=== PATIENT | female | born 1960 | race Asian ===

== ENCOUNTER 2016-08-30 14:37 | Emergency (ER) | payer OTHER ==
[2016-08-30] MEDS ORDERED: predniSONE 20 MG TAB As Ordered ONE (15:49)
[2016-08-30] MEDS ORDERED: IPRATROPIUM 0.5MG/ALBUTEROL 2.5MG INH SOL UD 3ML (DUONEB)(J7620) As Ordered ONE (15:50)
--- NOTE | 2016-08-30 16:07 | REP ---
Clinical: Cough. Technique: PA and lateral. Comparison: 11/22/2013. Findings: Bibasilar air space disease compatible with acute multifocal pneumonia (left greater than right). Mediastinum and cardiac silhouette normal. No pneumothorax. Skeletal structures stable. Impression: Bibasilar infiltrates compatible with acute pneumonia (left greater than right). Signed by Spencer Ward MD 08/30/2016 03:59 P
--- NOTE | 2016-08-30 16:36 | EDDOCDS ---
Nurse's Notes [facility] Name: Mikayla Garcia Age: 56 yrs Sex: Female : 1960 Arrival Date: 08/30/2016 Time: 14:37 Bed PD Private MD: Chago Bianchi Diagnosis: Pneumonia, unspecified organism Presentation: 08/30 14:47 Presenting complaint: Friend states: fever and left sided neck swelling x1 week. Adult ttb Sepsis Screening: The patient does not have new or worsening altered mentation. Patient's respiratory rate is less than 22. Systolic blood pressure is greater than 100. Patient has a qSOFA score of 0- Negative Sepsis Screen. Suicide/Homicide risk assessment- the patient denies having any suicidal and/or homicidal ideations and does not present with any other emotional, behavioral or mental health complaints. 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 Transition of care: patient was not received from another setting of care. 14:47 Acuity: BHAVESH Level 3 ttb 14:47 Method Of Arrival: Walkin/Carried/Asstd ttb Triage Assessment: 14:55 General: Appears in no apparent distress, well nourished, well groomed, Behavior is ttb appropriate for age, cooperative, pleasant. Pain: Location: left neck. Pt Declines HIV testing. Neurological: Level of Consciousness is awake, alert. EENT:. Cardiovascular: Chest pain is denied. Respiratory: Airway is patent Respiratory effort is even, unlabored, Respiratory pattern is regular, symmetrical, Reports shortness of breath cough that is pain with cough. Derm: Skin is normal. Injury Description: No known injury. Historical: - Allergies: Amoxicillin; Ampicillin; - Home Meds: 1. Theraflu Flu-Sore Throat 20-10-650 mg oral pwpk as needed 2. Ospamox (vietamese Amoxicillin) 500 mg three times a day x3 days (Last dose: 08/30/2016 08:00) - PMHx: none; - PSHx: Appendectomy; - Social history: Smoking status: Patient states was never smoker of tobacco. Preferred Language: Cameroonian. - Family history: Not pertinent. - : The pt / caregiver states he / she is not on anticoagulants. Home medication list is obtained from friend and medication bottle. - Exposure Risk Screening:: None identified. Screenin:33 Screening information is obtained from unable Cameroonian first languagel. jjr 16:35 Fall risk: No risks identified. jjr Assessment: 16:22 General: Appears in no apparent distress, slender, well nourished, well groomed, jjr Behavior is appropriate for age. Respiratory: Airway is patent Respiratory effort is even, unlabored, Respiratory pattern is regular. Derm: No deficits noted. Vital Signs: 14:38 BP 139 / 83; Pulse 112; Resp 18; Temp 100.8(O); Pulse Ox 96% on R/A; Weight 49.9 kg; lr2 Height 5 ft. 6 in. (167.64 cm); Pain 10/10; 16:22 BP 142 / 80; Pulse 113; Resp 18; Temp 100.2(O); Pulse Ox 93% on R/A; jjr 14:38 Body Mass Index 17.75 (49.90 kg, 167.64 cm) lr2 Vitals: 14:38 Log In Time: August 30, 2016 at 14:37. lr2 ED Course: 14:38 Patient visited by Effie Roland. lr2 14:38 Patient moved to Waiting lr2 14:39 Chago Bianchi MD is Private Physician. lr2 14:39 Patient moved to Pre RCE lr2 14:49 Triage Initiated ttb 14:57 Patient visited by Lisa Wagner, SUSAN. ttb 14:58 Patient moved to Triage 1 ms18 15:36 [facility]C [facility]. cc10 15:36 oClt Welsh MD is Attending Physician. cc10 15:40 Patient visited by Isidro Hernandez PA-C. cc10 15:40 Patient visited by Isidro Hernandez PA-C. cc10 15:45 Patient moved to PD2 / 27 ms18 15:55 Patient visited by Layla Robison,SUSAN. ms18 16:23 Patient visited by Beatriz Hancock RN. jjr 16:23 The patient / caregiver is instructed regarding the plan of care and ED course. jjr 16:24 [facility] Payment Agreement was scanned into [employer] and attached to record. jp5 16:25 Chago Bianchi MD is Referral Physician. cc10 16:34 No IV's were initiated during this patient's visit. No procedures done that require jjr assistance. Administered Medications: 15:45 CANCELLED (Other Intervention Used): predniSONE 20 mg PO once; administer with food or cc10 milk 15:55 Drug: Albuterol-Ipratropium 3 ml [ipratropium-albuterol 0.5 mg-3 mg(2.5 mg base)/3 mL lb nebulization soln (3 mL)] Route: Inhalation; 15:55 Drug: predniSONE 40 mg [prednisone 20 mg tablet (2 tabs)] Route: PO; ms18 RT: 15:55 Initial Med Neb Given as ordered Patient was instructed and evaluated on procedure lb Patient tolerated procedure well without adverse effect. Respiratory: Breath sounds are clear bilaterally. Order Results: There are currently no results for this order. Outcome: 16:26 Discharge ordered by Provider. cc10 16:34 Discharge Assessment: patient administered narcotics - no. The following High Risk jjr Discharge criteria are identified: None. Discharged to home ambulatory, with friend. Condition: stable. Discharge instructions given to PA states he spoke with daughter concerning discharge instructions. No special radiology studies were completed. Property sent home with patient. 16:35 Patient left the ED. jjr Signatures: Germaine Farr Jessica RN RN Lisa Ervin RN RN ttb Coniski, Colin, PA-C PAMannie cc10 Layla Robison RN RN ms18 Awa Dorado jp5 Effie Roland2 Corrections: (The following items were deleted from the chart) 15:56 14:55 Allergies: No known drug Allergies; ttb ms18 MTDD
--- NOTE | 2016-08-30 16:36 | EDDOCDS ---
Physician Documentation [facility] Name: Mikayla Garcia Age: 56 yrs Sex: Female : 1960 Arrival Date: 08/30/2016 Time: 14:37 Bed PD Private MD: Chago Bianchi Disposition: 08/30/16 16:26 Discharged to Home/Self Care. Impression: Pneumonia, unspecified organism. - Condition is Stable. - Discharge Instructions: Pneumonia, Adult. - Prescriptions for Levaquin 750 mg Oral Tablet - take 1 tablet by ORAL route once daily for 10 days; 10 tablet. Tylenol- Codeine #3 300-30 mg Oral Tablet - take 1 tablet by ORAL route every 6 hours As needed MDD: 4 tabs; 16 tablet. Albuterol Sulfate 90 mcg/actuation Inhalation HFA Aerosol Inhaler - inhale 2 puff by INHALATION route every 4 hours As needed; 1 Inhaler. - Medication Reconciliation, Local Pharmacy Hours form. - Follow up: Chago Bianchi MD; When: Tomorrow; Reason: Wound/Symptom Recheck, Recheck today's complaints, Worsening of conditions, Continuance of care. - Problem is an ongoing problem. - Symptoms have improved. Historical: - Allergies: Amoxicillin; Ampicillin; - Home Meds: 1. Theraflu Flu-Sore Throat 20-10-650 mg oral pwpk as needed 2. Ospamox (vietamese Amoxicillin) 500 mg three times a day x3 days (Last dose: 08/30/2016 08:00) - PMHx: none; - PSHx: Appendectomy; - Social history: Smoking status: Patient states was never smoker of tobacco. Preferred Language: Georgian. - Family history: Not pertinent. - : The pt / caregiver states he / she is not on anticoagulants. Home medication list is obtained from friend and medication bottle. - Exposure Risk Screening:: None identified. Vital Signs: 08/30 14:38 BP 139 / 83; Pulse 112; Resp 18; Temp 100.8(O); Pulse Ox 96% on R/A; Weight 49.9 kg / lr2 110.01 lbs; Height 5 ft. 6 in. (167.64 cm); Pain 10/10; 16:22 BP 142 / 80; Pulse 113; Resp 18; Temp 100.2(O); Pulse Ox 93% on R/A; jjr 14:38 Body Mass Index 17.75 (49.90 kg, 167.64 cm) lr2 MDM: 15:45 Albuterol-Ipratropium 3 ml Inhalation once ordered. cc10 15:45 Call Respiratory ordered. cc10 15:46 Call Respiratory complete. ar3 15:46 predniSONE 40 mg PO once; administer with food or milk ordered. cc10 15:47 Chest, 2 View (pa\E\lat) Ordered. EDMS 16:09 Vital Signs ordered. cc10 16:24 [facility] Payment Agreement was scanned into [employer] and attached to record. jp5 16:24 Financial registration complete. jp5 Administered Medications: 15:45 CANCELLED (Other Intervention Used): predniSONE 20 mg PO once; administer with food or cc10 milk 15:55 Drug: Albuterol-Ipratropium 3 ml [ipratropium-albuterol 0.5 mg-3 mg(2.5 mg base)/3 mL lb nebulization soln (3 mL)] Route: Inhalation; 15:55 Drug: predniSONE 40 mg [prednisone 20 mg tablet (2 tabs)] Route: PO; ms18 Signatures: Dispatcher [employer] EDUT Beatriz Hancock, RN RN Charlee Da Silva, MOY HOT STAMP OPERATOR ar3 Lisa Wagner RN RN ttb Isidro Hernandez, PA-C PAKeeC cc10 Layla Robison RN RN ms18 Awa Dorado jp5 Germaine Farr The chart was reviewed and I authenticate all verbal orders and agree with the evaluation and treatment provided.Corrections: (The following items were deleted from the chart) 15:45 15:45 predniSONE 20 mg PO once; administer with food or milk ordered. cc10 cc10 15:56 14:55 Allergies: No known drug Allergies; ttb ms18 Attachments: 16:24 [facility] Payment Agreement jp5 MTDD
--- NOTE | 2016-09-01 17:36 | EDDOCDS ---
Nurse's Notes [facility] Name: Mikayla Garcia Age: 56 yrs Sex: Female : 1960 Arrival Date: 08/30/2016 Time: 14:37 Bed PD Private MD: Chago Bianchi Diagnosis: Pneumonia, unspecified organism Presentation: 08/30 14:47 Presenting complaint: Friend states: fever and left sided neck swelling x1 week. Adult ttb Sepsis Screening: The patient does not have new or worsening altered mentation. Patient's respiratory rate is less than 22. Systolic blood pressure is greater than 100. Patient has a qSOFA score of 0- Negative Sepsis Screen. Suicide/Homicide risk assessment- the patient denies having any suicidal and/or homicidal ideations and does not present with any other emotional, behavioral or mental health complaints. 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 Transition of care: patient was not received from another setting of care. 14:47 Acuity: BHAVESH Level 3 ttb 14:47 Method Of Arrival: Walkin/Carried/Asstd ttb Triage Assessment: 14:55 General: Appears in no apparent distress, well nourished, well groomed, Behavior is ttb appropriate for age, cooperative, pleasant. Pain: Location: left neck. Pt Declines HIV testing. Neurological: Level of Consciousness is awake, alert. EENT:. Cardiovascular: Chest pain is denied. Respiratory: Airway is patent Respiratory effort is even, unlabored, Respiratory pattern is regular, symmetrical, Reports shortness of breath cough that is pain with cough. Derm: Skin is normal. Injury Description: No known injury. Historical: - Allergies: Amoxicillin; Ampicillin; - Home Meds: 1. Theraflu Flu-Sore Throat 20-10-650 mg oral pwpk as needed 2. Ospamox (vietamese Amoxicillin) 500 mg three times a day x3 days (Last dose: 08/30/2016 08:00) - PMHx: none; - PSHx: Appendectomy; - Social history: Smoking status: Patient states was never smoker of tobacco. Preferred Language: Maltese. - Family history: Not pertinent. - : The pt / caregiver states he / she is not on anticoagulants. Home medication list is obtained from friend and medication bottle. - Exposure Risk Screening:: None identified. Screenin:33 Screening information is obtained from unable Maltese first languagel. jjr 16:35 Fall risk: No risks identified. jjr Assessment: 16:22 General: Appears in no apparent distress, slender, well nourished, well groomed, jjr Behavior is appropriate for age. Respiratory: Airway is patent Respiratory effort is even, unlabored, Respiratory pattern is regular. Derm: No deficits noted. Vital Signs: 14:38 BP 139 / 83; Pulse 112; Resp 18; Temp 100.8(O); Pulse Ox 96% on R/A; Weight 49.9 kg; lr2 Height 5 ft. 6 in. (167.64 cm); Pain 10/10; 16:22 BP 142 / 80; Pulse 113; Resp 18; Temp 100.2(O); Pulse Ox 93% on R/A; jjr 14:38 Body Mass Index 17.75 (49.90 kg, 167.64 cm) lr2 Vitals: 14:38 Log In Time: August 30, 2016 at 14:37. lr2 ED Course: 14:38 Patient visited by Effie Roland. lr2 14:38 Patient moved to Waiting lr2 14:39 Chago Bianchi MD is Private Physician. lr2 14:39 Patient moved to Pre RCE lr2 14:49 Triage Initiated ttb 14:57 Patient visited by Lisa Wagner, SUSAN. ttb 14:58 Patient moved to Triage 1 ms18 15:36 Isidro Hernandez PA-C is [facility]. cc10 15:36 Colt Welsh MD is Attending Physician. cc10 15:40 Patient visited by Isidro Hernandez PA-C. cc10 15:40 Patient visited by Isidro Hernandez PA-C. cc10 15:45 Patient moved to PD2 / 27 ms18 15:55 Patient visited by Layla Robison,SUSAN. ms18 16:23 Patient visited by Beatriz Hancock RN. jjr 16:23 The patient / caregiver is instructed regarding the plan of care and ED course. jjr 16:24 [facility] Payment Agreement was scanned into [employer] and attached to record. jp5 16:25 Chago Bianchi MD is Referral Physician. cc10 16:34 No IV's were initiated during this patient's visit. No procedures done that require jjr assistance. 16:42 Chest, 2 View (pa\E\lat) Returned. EDME 08/31 10:14 T-Sheet-- Draft Copy was scanned into [employer] and attached to record. gb Administered Medications: 08/30 15:45 CANCELLED (Other Intervention Used): predniSONE 20 mg PO once; administer with food or cc10 milk 15:55 Drug: Albuterol-Ipratropium 3 ml [ipratropium-albuterol 0.5 mg-3 mg(2.5 mg base)/3 mL lb nebulization soln (3 mL)] Route: Inhalation; 15:55 Drug: predniSONE 40 mg [prednisone 20 mg tablet (2 tabs)] Route: PO; ms18 RT: 15:55 Initial Med Neb Given as ordered Patient was instructed and evaluated on procedure lb Patient tolerated procedure well without adverse effect. Respiratory: Breath sounds are clear bilaterally. Order Results: Radiology Order: Chest, 2 View (pa\E\lat) Test: Chest, 2 View (pa\E\lat) REASON FOR EXAMINATION: Cough; Clinical: Cough.; ; Technique: PA and lateral.; ; Comparison: 11/22/2013.; ; Findings:; Bibasilar air space disease compatible with acute multifocal pneumonia (left; greater than right). Mediastinum and cardiac silhouette normal. No; pneumothorax. Skeletal structures stable.; ; Impression:; Bibasilar infiltrates compatible with acute pneumonia (left greater than right).; ; ; Signed by; Spencer Ward MD 08/30/2016 03:59 P; Outcome: 16:26 Discharge ordered by Provider. cc10 16:34 Discharge Assessment: patient administered narcotics - no. The following High Risk jjr Discharge criteria are identified: None. Discharged to home ambulatory, with friend. Condition: stable. Discharge instructions given to PA states he spoke with daughter concerning discharge instructions. No special radiology studies were completed. Property sent home with patient. 16:35 Patient left the ED. jjr Signatures: Dispatcher [employer] EDME Lou Rosario, Reg Reg Germaine Wilkins Jessica, RN RN jjr Conner, Teresa, RN RN ttb Coniski, Colin, PA-C PAMannie cc10 Layla Robison,RN RN ms18 Awa Dorado jp5 Effie Roland lr2 Corrections: (The following items were deleted from the chart) 15:56 14:55 Allergies: No known drug Allergies; ttb ms18 Chart Complete MTDD
--- NOTE | 2016-09-01 17:36 | EDDOCDS ---
Physician Documentation [facility] Name: Mikayla Garcia Age: 56 yrs Sex: Female : 1960 Arrival Date: 08/30/2016 Time: 14:37 Bed PD Private MD: Chago Bianchi Disposition: 08/30/16 16:26 Discharged to Home/Self Care. Impression: Pneumonia, unspecified organism. - Condition is Stable. - Discharge Instructions: Pneumonia, Adult. - Prescriptions for Levaquin 750 mg Oral Tablet - take 1 tablet by ORAL route once daily for 10 days; 10 tablet. Tylenol- Codeine #3 300-30 mg Oral Tablet - take 1 tablet by ORAL route every 6 hours As needed MDD: 4 tabs; 16 tablet. Albuterol Sulfate 90 mcg/actuation Inhalation HFA Aerosol Inhaler - inhale 2 puff by INHALATION route every 4 hours As needed; 1 Inhaler. - Medication Reconciliation, Local Pharmacy Hours form. - Follow up: Chago Bianchi MD; When: Tomorrow; Reason: Wound/Symptom Recheck, Recheck today's complaints, Worsening of conditions, Continuance of care. - Problem is an ongoing problem. - Symptoms have improved. Historical: - Allergies: Amoxicillin; Ampicillin; - Home Meds: 1. Theraflu Flu-Sore Throat 20-10-650 mg oral pwpk as needed 2. Ospamox (vietamese Amoxicillin) 500 mg three times a day x3 days (Last dose: 08/30/2016 08:00) - PMHx: none; - PSHx: Appendectomy; - Social history: Smoking status: Patient states was never smoker of tobacco. Preferred Language: Urdu. - Family history: Not pertinent. - : The pt / caregiver states he / she is not on anticoagulants. Home medication list is obtained from friend and medication bottle. - Exposure Risk Screening:: None identified. Vital Signs: 08/30 14:38 BP 139 / 83; Pulse 112; Resp 18; Temp 100.8(O); Pulse Ox 96% on R/A; Weight 49.9 kg / lr2 110.01 lbs; Height 5 ft. 6 in. (167.64 cm); Pain 10/10; 16:22 BP 142 / 80; Pulse 113; Resp 18; Temp 100.2(O); Pulse Ox 93% on R/A; jjr 14:38 Body Mass Index 17.75 (49.90 kg, 167.64 cm) lr2 MDM: 15:45 Albuterol-Ipratropium 3 ml Inhalation once ordered. cc10 15:45 Call Respiratory ordered. cc10 15:46 Call Respiratory complete. ar3 15:46 predniSONE 40 mg PO once; administer with food or milk ordered. cc10 15:47 Chest, 2 View (pa\E\lat) Ordered. EDMS 16:09 Vital Signs ordered. [facility] 16:24 [facility] Payment Agreement was scanned into [employer] and attached to record. [facility] 16: Financial registration complete. [facility] 08/31 10:14 T-Sheet-- Draft Copy was scanned into [employer] and attached to record. gb Administered Medications: 08/30 15:45 CANCELLED (Other Intervention Used): predniSONE 20 mg PO once; administer with food or cc10 milk 15:55 Drug: Albuterol-Ipratropium 3 ml [ipratropium-albuterol 0.5 mg-3 mg(2.5 mg base)/3 mL lb nebulization soln (3 mL)] Route: Inhalation; 15:55 Drug: predniSONE 40 mg [prednisone 20 mg tablet (2 tabs)] Route: PO; ms18 Signatures: Dispatcher [employer] EDLA Lou Rosario, Reg Reg gb Beatriz Hancock, RN RN johanjCharlee Kumar, ONLINE ACTIVIST ONLINE ACTIVIST ar3 Lisa Wagner RN RN ttb Isidro Hernandez, PA-C PA-C cc10 Layla Robison RN RN ms18 Awa Dorado jp5 Germaine Farr The chart was reviewed and I authenticate all verbal orders and agree with the evaluation and treatment provided.Corrections: (The following items were deleted from the chart) 15:45 15:45 predniSONE 20 mg PO once; administer with food or milk ordered. cc10 cc10 15:56 14:55 Allergies: No known drug Allergies; ttb ms18 Attachments: 16:24 [facility] Payment Agreement [facility] 08/31 10:14 T-Sheet-- Draft Copy gb Chart Complete MTDD
--- NOTE | 2016-09-01 17:36 | EDDOCDS ---
Physician Documentation [facility] Name: Mikayla Garcia Age: 56 yrs Sex: Female : 1960 Arrival Date: 08/30/2016 Time: 14:37 Bed PD Private MD: Chago Bianchi Disposition: 08/30/16 16:26 Discharged to Home/Self Care. Impression: Pneumonia, unspecified organism. - Condition is Stable. - Discharge Instructions: Pneumonia, Adult. - Prescriptions for Levaquin 750 mg Oral Tablet - take 1 tablet by ORAL route once daily for 10 days; 10 tablet. Tylenol- Codeine #3 300-30 mg Oral Tablet - take 1 tablet by ORAL route every 6 hours As needed MDD: 4 tabs; 16 tablet. Albuterol Sulfate 90 mcg/actuation Inhalation HFA Aerosol Inhaler - inhale 2 puff by INHALATION route every 4 hours As needed; 1 Inhaler. - Medication Reconciliation, Local Pharmacy Hours form. - Follow up: Chago Bianchi MD; When: Tomorrow; Reason: Wound/Symptom Recheck, Recheck today's complaints, Worsening of conditions, Continuance of care. - Problem is an ongoing problem. - Symptoms have improved. Historical: - Allergies: Amoxicillin; Ampicillin; - Home Meds: 1. Theraflu Flu-Sore Throat 20-10-650 mg oral pwpk as needed 2. Ospamox (vietamese Amoxicillin) 500 mg three times a day x3 days (Last dose: 08/30/2016 08:00) - PMHx: none; - PSHx: Appendectomy; - Social history: Smoking status: Patient states was never smoker of tobacco. Preferred Language: Azeri. - Family history: Not pertinent. - : The pt / caregiver states he / she is not on anticoagulants. Home medication list is obtained from friend and medication bottle. - Exposure Risk Screening:: None identified. Vital Signs: 08/30 14:38 BP 139 / 83; Pulse 112; Resp 18; Temp 100.8(O); Pulse Ox 96% on R/A; Weight 49.9 kg / lr2 110.01 lbs; Height 5 ft. 6 in. (167.64 cm); Pain 10/10; 16:22 BP 142 / 80; Pulse 113; Resp 18; Temp 100.2(O); Pulse Ox 93% on R/A; jjr 14:38 Body Mass Index 17.75 (49.90 kg, 167.64 cm) lr2 MDM: 15:45 Albuterol-Ipratropium 3 ml Inhalation once ordered. cc10 15:45 Call Respiratory ordered. cc10 15:46 Call Respiratory complete. ar3 15:46 predniSONE 40 mg PO once; administer with food or milk ordered. cc10 15:47 Chest, 2 View (pa\E\lat) Ordered. EDMS 16:09 Vital Signs ordered. [facility] 16:24 [facility] Payment Agreement was scanned into [employer] and attached to record. [facility] 16: Financial registration complete. [facility] 08/31 10:14 T-Sheet-- Draft Copy was scanned into [employer] and attached to record. gb Administered Medications: 08/30 15:45 CANCELLED (Other Intervention Used): predniSONE 20 mg PO once; administer with food or cc10 milk 15:55 Drug: Albuterol-Ipratropium 3 ml [ipratropium-albuterol 0.5 mg-3 mg(2.5 mg base)/3 mL lb nebulization soln (3 mL)] Route: Inhalation; 15:55 Drug: predniSONE 40 mg [prednisone 20 mg tablet (2 tabs)] Route: PO; ms18 Signatures: Dispatcher [employer] EDWI Lou Rosario, Reg Reg gb Beatriz Hancock, RN RN johanjCharlee Kumar, SECURITY ALARM TECHNICIAN SECURITY ALARM TECHNICIAN ar3 Lisa Wagner RN RN ttb Isidro Hernandez, PA-C PA-C cc10 Layla Robison RN RN ms18 Awa Dorado jp5 Germaine Farr The chart was reviewed and I authenticate all verbal orders and agree with the evaluation and treatment provided.Corrections: (The following items were deleted from the chart) 15:45 15:45 predniSONE 20 mg PO once; administer with food or milk ordered. cc10 cc10 15:56 14:55 Allergies: No known drug Allergies; ttb ms18 Attachments: 16:24 [facility] Payment Agreement [facility] 08/31 10:14 T-Sheet-- Draft Copy gb Chart Complete MTDD
== END 2016-08-30 16:35 | disposition home or self-care (01) ==
LOC: M ED 14:37
DX: J84.9 Interstitial pulmonary disease, unspecified (principal); Z88.0 Allergy status to penicillin

== ENCOUNTER → 2016-11-05 | Outpatient (REF) | payer OTHER ==
[2016-11-05 13:14] LABS: BASO % 0.4 % (0.0-1.0); EOS # 0.1 K/mm3 (0.0-0.50); EOS % 3.2 % (0.0-3.0); LARGE UNSTAINED CELL # 0.1 K/mm3 (0.0-0.4); LARGE UNSTAINED CELL % 2.1 % (0.0-4.0); LYMPH # 1.7 K/mm3 (1.5-4.5); LYMPH % 36.7 % (24.0-44.0); MEAN CORPUSCULAR HEMOGLOBIN 32.1 pg (27.0-33.0); MEAN CORPUSCULAR VOLUME 97.1 fl (80.0-96.0); MONO # 0.2 K/mm3 (0.0-0.8); MONO % 5.1 % (0.0-5.0); NEUTROPHILS # 2.3 K/mm3 (1.8-7.7); NEUTROPHILS % 52.6 % (36.0-66.0); PLATELET COUNT, AUTOMATED 216 k/mm3 (150-450); RED CELL DISTRIBUTION WIDTH 12.5 % (11.5-14.5); WHITE BLOOD COUNT 4.4 K/mm3 (4.0-10.0)
[2016-11-05 13:19] LABS: ALBUMIN 3.9 GM/DL (3.2-5.2); ALBUMIN/GLOBULIN RATIO 1.11 (1.00-1.93); ALKALINE PHOSPHATASE 74 U/L (45-117); ALT/SGPT 35 U/L (12-78); ANION GAP 8 MEQ/L (8-16); AST/SGOT 40 U/L (15-37); BILIRUBIN,TOTAL 0.3 MG/DL (0.2-1.0); BLOOD UREA NITROGEN 12 MG/DL (7-18); CALCIUM LEVEL 9.1 MG/DL (8.5-10.1); CARBON DIOXIDE LEVEL 29 MEQ/L (21-32); CHLORIDE LEVEL 106 MEQ/L (98-107); CREATININE FOR GFR 0.54 MG/DL (0.55-1.02); GLOMERULAR FILTRATION RATE > 60.0 (>51); GLUCOSE, FASTING 88 MG/DL (70-105); POTASSIUM SERUM 4.1 MEQ/L (3.5-5.1); SODIUM LEVEL 143 MEQ/L (136-145); TOTAL PROTEIN 7.4 GM/DL (6.4-8.2)
== END ==
LOC: M SFHCPLAZ 09:55
PROVIDERS: ATTEND Internal Medicine Infectious Disease
DX: B18.1 Chronic viral hepatitis B without delta-agent (principal)

== ENCOUNTER → 2016-11-10 | Outpatient (CLI) | payer OTHER ==
--- NOTE | 2016-11-11 08:14 | REP ---
LIMITED ABDOMINAL ULTRASOUND: CLINICAL: Chronic hepatitis B. COMPARISON: 04/08/2015. TECHNIQUE: Real-time curtis scale ultrasound examination using curved array transducer. FINDINGS: The liver is normal in contour, size, and echogenicity without focal hepatic lesions identified. Liver contour is normal and without nodularity to suggest cirrhosis. The pancreas is incompletely evaluated due to interposed bowel gas, but visualized portions appear normal. The gallbladder is unremarkable and without gallstones, wall thickening, or pericholecystic fluid. No biliary ductal dilatation is appreciated and the common bile duct measures 1.9 mm diameter. The right kidney is normal in reniform shape without hydronephrosis and measures 11.1 x 4.7 x 3.5 cm. No ascites. IMPRESSION: Normal liver and right upper quadrant ultrasound examination. Signed by Spencer Ward MD 11/17/2016 09:00 A
== END ==
LOC: M RAD 08:08
PROVIDERS: ATTEND Internal Medicine Infectious Disease
DX: B18.1 Chronic viral hepatitis B without delta-agent (principal)

== ENCOUNTER → 2016-12-07 | Outpatient (REF) | payer OTHER ==
[2016-12-07 14:22] LABS: ALKALINE PHOSPHATASE 67 U/L (45-117); ALT/SGPT 30 U/L (12-78); ANION GAP 8 MEQ/L (8-16); AST/SGOT 44 U/L (15-37); BILIRUBIN,TOTAL 0.6 MG/DL (0.2-1.0); BLOOD UREA NITROGEN 13 MG/DL (7-18); CALCIUM LEVEL 8.9 MG/DL (8.5-10.1); CARBON DIOXIDE LEVEL 27 MEQ/L (21-32); CHLORIDE LEVEL 108 MEQ/L (98-107); CHOLESTEROL LEVEL 164 MG/DL (<200); CREATININE FOR GFR 0.52 MG/DL (0.55-1.02); GLOMERULAR FILTRATION RATE > 60.0 (>51); GLUCOSE, FASTING 92 MG/DL (70-105); POTASSIUM SERUM 3.9 MEQ/L (3.5-5.1); SODIUM LEVEL 143 MEQ/L (136-145); TRIGLYCERIDES LEVEL 84 MG/DL (<150)
[2016-12-07 14:23] LABS: ALBUMIN 3.8 GM/DL (3.2-5.2); ALBUMIN/GLOBULIN RATIO 1.09 (1.00-1.93); FREE T4 1.13 NG/DL (0.76-1.46); TOTAL PROTEIN 7.3 GM/DL (6.4-8.2)
[2016-12-07 14:30] LABS: BASO % 0.4 % (0.0-1.0); EOS # 0.1 K/mm3 (0.0-0.50); EOS % 1.6 % (0.0-3.0); LARGE UNSTAINED CELL # 0.1 K/mm3 (0.0-0.4); LARGE UNSTAINED CELL % 1.3 % (0.0-4.0); LYMPH # 1.6 K/mm3 (1.5-4.5); MEAN CORPUSCULAR HEMOGLOBIN 31.5 pg (27.0-33.0); MEAN CORPUSCULAR HGB CONC 32.3 g/dl (32.0-36.5); MEAN CORPUSCULAR VOLUME 97.4 fl (80.0-96.0); MONO # 0.3 K/mm3 (0.0-0.8); MONO % 5.5 % (0.0-5.0); NEUTROPHILS # 3.1 K/mm3 (1.8-7.7); NEUTROPHILS % 61.2 % (36.0-66.0); PLATELET COUNT, AUTOMATED 202 k/mm3 (150-450); RED CELL DISTRIBUTION WIDTH 12.6 % (11.5-14.5)
== END ==
LOC: M SFHCPLAZ 09:34
PROVIDERS: ATTEND Family Medicine
DX: J34.89 Other specified disorders of nose and nasal sinuses (principal); R63.4 Abnormal weight loss; E78.5 Hyperlipidemia, unspecified; B18.1 Chronic viral hepatitis B without delta-agent; E07.9 Disorder of thyroid, unspecified

== ENCOUNTER → 2017-01-06 | Outpatient (CLI) | payer OTHER ==
[~2017-01-06] MED LIST: CALC1TAB56 PO; FISH100042 PO; NEXI20CA PO; TENO30TAB PO; ZOCO20TA PO
--- NOTE | 2017-01-07 12:29 | REP ---
PET/CT: HISTORY: Diagnosing lung malignancy. Comparison chest CT study [facility] 12/14/2016. The 09/22/[address] is also reviewed. TECHNIQUE: 52 minutes following the intravenous injection of a 7.1 mCi dose of F-18 FDG, three-dimensional PET scintigraphy is acquired from the skull base to the proximal thighs. Triplanar noncontrast CT scanning is acquired through the same anatomic range for attenuation correction, and image registration with scan parameters optimized to minimize radiation exposure to the patient. PET scintigraphy and CT datasets were fused and displayed on a workstation with multiplanar and projection display capability. PET/CT FINDINGS: There is no abnormal hypermetabolic uptake in the thorax. Maximum standard uptake value at the level of the three apical nodular opacities is less than 1. No abnormal hypermetabolic uptake is seen elsewhere in the lung parenchyma on either side. No hilar or mediastinal hypermetabolic uptake is seen. Head and neck soft tissues are unremarkable. In the abdomen and pelvis, normal hepatic, splenic, gastrointestinal, and genitourinary FDG accumulation is seen. No abnormal abdominal or pelvic hypermetabolic uptake is seen. No abnormal adrenal uptake is observed. IMPRESSION: Negative PET scintigraphy. No abnormal intrathoracic hypermetabolic uptake is seen. Signed by Josafat Alvarado MD 01/07/2017 05:14 P
== END ==
LOC: M PLARAD 08:15
PROVIDERS: ATTEND Internal Medicine Pulmonary Disease
DX: R91.8 Other nonspecific abnormal finding of lung field (principal)

== ENCOUNTER → 2017-01-11 | Outpatient (REF) | payer OTHER | LOC: M SFHCPLAZ 11:20 | PROVIDERS: ATTEND Family Medicine | DX: B18.1 Chronic viral hepatitis B without delta-agent (principal) ==

== ENCOUNTER → 2017-01-22 | Outpatient (REF) | payer OTHER | LOC: M LAB REF 09:42 | PROVIDERS: ATTEND Internal Medicine Gastroenterology | DX: R19.7 Diarrhea, unspecified (principal) ==

== ENCOUNTER 2017-02-15 07:46 | Outpatient (CLI) | payer OTHER ==
[~2017-02-15] VITALS: Ht 157.5 cm; Wt 47.2 kg
[2017-02-15] MEDS ORDERED: FISH100042 PO (08:25)
[2017-02-15] MEDS ORDERED: CALC1TAB56 PO (08:25)
[2017-02-15] MEDS ORDERED: ZOCO20TA PO (08:25)
[2017-02-15] MEDS ORDERED: NEXI20CA PO (08:25)
[2017-02-15] MEDS ORDERED: TENO30TAB PO (08:25)
[2017-02-15] MEDS ORDERED: NS 1,000 ML IV ONE (08:45)
--- NOTE | 2017-02-15 08:53 | ROOR ---
Patient Name: Mikayla Garcia Procedure Date: 02/15/2017 8:36 AM Date of : 1960 Age: 56 Room: [facility] Gender: Female Note Status: Finalized Procedure: Upper GI endoscopy Indications: Epigastric abdominal pain, Heartburn Providers: Cb CALHOUN MD Referring MD: ILIANA SIMONS Requesting Provider: Medicines: Monitored Anesthesia Care Complications: No immediate complications. Procedure: Pre-Anesthesia Assessment: - The heart rate, respiratory rate, oxygen saturations, blood pressure, adequacy of pulmonary ventilation, and response to care were monitored throughout the procedure. The Endoscope was introduced through the mouth, and advanced to the second part of duodenum. The upper GI endoscopy was accomplished without difficulty. The patient tolerated the procedure well. Findings: Mild inflammation was found in the gastric antrum. Biopsies were taken with a cold forceps for Helicobacter pylori testing. The exam of the stomach was otherwise normal. The examined esophagus was normal. The examined duodenum was normal. Impression: - Mild Gastritis. Biopsied. - Normal esophagus. - Normal examined duodenum. Recommendation: - Telephone endoscopist for pathology results in 2 weeks. - Use Prilosec (omeprazole) 20 mg PO BID. Cb Calhoun MD Cb CALHOUN MD 02/15/2017 8:53:09 AM This report has been signed electronically. Number of Addenda: 0 Note Initiated On: 02/15/2017 8:36 AM Estimated Blood Loss: Estimated blood loss: none.
[2017-02-15] MEDS ORDERED: PROPOFOL 200 MG/20 ML VIAL As Ordered ONE (09:08)
[2017-02-15] MEDS ORDERED: LIDOCAINE 2% INJ 100 MG/5 ML SDV (FOR ANES.) As Ordered ONE (09:09)
--- NOTE | 2017-02-15 09:11 | ROOR ---
Patient Name: Mikayla Garcia Procedure Date: 02/15/2017 8:37 AM Date of : 1960 Age: 56 Room: [facility] Gender: Female Note Status: Finalized Procedure: Colonoscopy Indications: Screening for colorectal malignant neoplasm Providers: Cb CALHOUN MD Referring MD: ILIANA SIMONS, RACHEL ELIZABETH MD Requesting Provider: Medicines: Monitored Anesthesia Care Complications: No immediate complications. Procedure: Pre-Anesthesia Assessment: - The heart rate, respiratory rate, oxygen saturations, blood pressure, adequacy of pulmonary ventilation, and response to care were monitored throughout the procedure. The Colonoscope was introduced through the anus and advanced to 3 cm into the ileum. The colonoscopy was performed without difficulty. The patient tolerated the procedure well. The quality of the bowel preparation was good. Findings: The perianal and digital rectal examinations were normal. A 5 mm polyp was found in the rectum. The polyp was sessile. The polyp was removed with a cold snare. Resection and retrieval were complete. Small Internal Hemorrhoids. The exam was otherwise without abnormality on direct and retroflexion views. Impression: - One 5 mm polyp in the rectum, removed with a cold snare. Resected and retrieved. - Small Internal Hemorrhoids. - The examination was otherwise normal on direct and retroflexion views. Recommendation: - Telephone endoscopist for pathology results in 2 weeks. - If the pathology report reveals adenomatous tissue, then repeat the colonoscopy for surveillance in 3 years. Cb Calhoun MD Cb CALHOUN MD 02/15/2017 9:11:22 AM This report has been signed electronically. Number of Addenda: 0 Note Initiated On: 02/15/2017 8:37 AM Estimated Blood Loss: Estimated blood loss: none.
[2017-02-15 09:45] VITALS: BP 106/61
== END 2017-02-15 09:52 | disposition home or self-care (01) ==
LOC: M OPP 07:46
PROVIDERS: ATTEND Internal Medicine Gastroenterology
DX: R19.7 Diarrhea, unspecified (principal); K62.1 Rectal polyp; K64.8 Other hemorrhoids; R10.13 Epigastric pain; R12 Heartburn; K29.70 Gastritis, unspecified, without bleeding; K25.9 Gastric ulcer, unspecified as acute or chronic, without hemorrhage or perforation; R53.83 Other fatigue; R63.4 Abnormal weight loss; R19.4 Change in bowel habit; E78.5 Hyperlipidemia, unspecified; K21.9 Gastro-esophageal reflux disease without esophagitis; I51.9 Heart disease, unspecified; B18.1 Chronic viral hepatitis B without delta-agent; Z88.0 Allergy status to penicillin; Z88.5 Allergy status to narcotic agent; Z88.1 Allergy status to other antibiotic agents; Z88.8 Allergy status to other drugs, medicaments and biological substances

== ENCOUNTER → 2017-03-18 | Outpatient (CLI) | payer OTHER ==
--- NOTE | 2017-03-18 09:17 | REPMRS ---
Patient History The patient states she had a clinical breast exam in 03/2017. Patient is postmenopausal. No known family history of cancer. Digital Woman Screen Mammo: March 18, 2017 - Exam #: [id number] Bilateral CC and MLO view(s) were taken. Technologist: Zakia Peterson, Technologist Prior study comparison: March 17, 2016, digital woman screen mammo performed at [facility]. February 26, 2015, digital woman screen mammo performed at [facility]. February 26, 2014, digital woman screen mammo performed at [facility]. FINDINGS: The breast tissue is extremely dense which could obscure a lesion on mammography. There is an extremely dense symmetrical pattern of residual fibroglandular tissue. There has been no change in the appearance of the mammogram from the previous studies. There is no interval development of dominant mass, archetectural distortion, or microcalcific cluster suggestive of malignancy. ASSESSMENT: BI-RADS/ACR category 2 mammogram. Benign finding(s). Recommendation Routine screening mammogram of both breasts in 1 year (for women over age 40). This mammogram was interpreted with the aid of an FDA-approved computer-aided dectection system. Electronically Signed By: Dwayne Alvarado MD 03/18/17 0945
== END ==
LOC: M WHC 08:06
PROVIDERS: ATTEND Nurse Practitioner Family
DX: Z12.31 Encounter for screening mammogram for malignant neoplasm of breast (principal); Z78.0 Asymptomatic menopausal state; R92.8 Other abnormal and inconclusive findings on diagnostic imaging of breast

== ENCOUNTER → 2017-04-13 | Outpatient (REF) | payer OTHER ==
[2017-04-13 11:55] LABS: BASO % 0.4 % (0.0-1.0); EOS # 0.1 10^3/uL (0.0-0.50); EOS % 2.4 % (0.0-3.0); LYMPH # 1.7 10^3/uL (1.5-4.5); LYMPH % 35.6 % (24.0-44.0); MEAN CORPUSCULAR HEMOGLOBIN 31.2 pg (27.0-33.0); MEAN CORPUSCULAR HGB CONC 32.4 g/dl (32.0-36.5); MEAN CORPUSCULAR VOLUME 96.2 fl (80.0-96.0); MONO # 0.4 10^3/uL (0.0-0.8); MONO % 9.5 % (0.0-5.0); NEUTROPHILS # 2.4 10^3/uL (1.8-7.7); NEUTROPHILS % 52.1 % (36.0-66.0); PLATELET COUNT, AUTOMATED 229 10^3/uL (150-450); WHITE BLOOD COUNT 4.6 10^3/uL (4.0-10.0)
[2017-04-13 12:33] LABS: ALBUMIN/GLOBULIN RATIO 1.08 (1.00-1.93); BILIRUBIN,DIRECT 0.1 MG/DL (0.0-0.2); BILIRUBIN,TOTAL 0.5 MG/DL (0.2-1.0); TOTAL PROTEIN 7.7 GM/DL (6.4-8.2)
== END ==
LOC: M SFHCPLAZ 08:29
PROVIDERS: ATTEND Internal Medicine Infectious Disease
DX: B18.1 Chronic viral hepatitis B without delta-agent (principal)

== ENCOUNTER → 2017-10-15 | Outpatient (CLI) | payer OTHER | LOC: M RAD 07:39 | DX: B18.1 Chronic viral hepatitis B without delta-agent (principal) | CPT/HCPCS: 76705 ==

== ENCOUNTER → 2018-03-18 | Outpatient (CLI) | payer OTHER | LOC: M WHC 08:09 | DX: Z12.31 Encounter for screening mammogram for malignant neoplasm of breast (principal) | CPT/HCPCS: 77067 ==

== ENCOUNTER → 2018-03-18 | Outpatient (REF) | payer OTHER ==
[2018-03-23 14:16] LABS: HPV HYBRID CAPTURE II Negative (Negative)
== END ==
LOC: M SFHCWAGY 08:36
DX: Z12.4 Encounter for screening for malignant neoplasm of cervix (principal)

== ENCOUNTER → 2018-04-04 | Outpatient (REF) | payer OTHER ==
[2018-04-04 12:36] LABS: BASO % 0.6 % (0.0-1.0); EOS # 0.1 10^3/uL (0.0-0.50); EOS % 2.6 % (0.0-3.0); HEMATOCRIT 44.6 % (36.0-47.0); HEMOGLOBIN 14.9 g/dl (12.0-15.5); IMMATURE GRANULOCYTE % 0.2 % (0-3.0); LYMPH # 1.5 10^3/uL (1.5-4.5); LYMPH % 31.5 % (24.0-44.0); MEAN CORPUSCULAR HEMOGLOBIN 31.5 pg (27.0-33.0); MEAN CORPUSCULAR HGB CONC 33.4 g/dl (32.0-36.5); MEAN CORPUSCULAR VOLUME 94.3 fl (80.0-96.0); MONO # 0.3 10^3/uL (0.0-0.8); MONO % 7.3 % (0.0-5.0); NEUTROPHILS # 2.7 10^3/uL (1.8-7.7); NEUTROPHILS % 57.8 % (36.0-66.0); PLATELET COUNT, AUTOMATED 220 10^3/uL (150-450); RED BLOOD COUNT 4.73 10^6/uL (4.00-5.40); RED CELL DISTRIBUTION WIDTH 12.1 % (11.5-14.5); WHITE BLOOD COUNT 4.6 10^3/uL (4.0-10.0)
[2018-04-04 13:16] LABS: ALBUMIN 3.9 GM/DL (3.2-5.2); ALBUMIN/GLOBULIN RATIO 1.05 (1.00-1.93); ALKALINE PHOSPHATASE 69 U/L (45-117); ALT/SGPT 22 U/L (12-78); ANION GAP 6 MEQ/L (8-16); AST/SGOT 40 U/L (7-37); BILIRUBIN,TOTAL 0.8 MG/DL (0.2-1.0); BLOOD UREA NITROGEN 12 MG/DL (7-18); CALCIUM LEVEL 8.7 MG/DL (8.5-10.1); CARBON DIOXIDE LEVEL 30 MEQ/L (21-32); CHLORIDE LEVEL 108 MEQ/L (98-107); CHOLESTEROL LEVEL 168 MG/DL (<200); CHOLESTEROL RISK RATIO 2.048 (<5); CREATININE FOR GFR 0.55 MG/DL (0.55-1.30); GLOMERULAR FILTRATION RATE > 60.0 (>51); GLUCOSE, FASTING 91 MG/DL (70-100); HDL CHOLESTEROL 82 MG/DL (>40); LDL CHOLESTEROL 70 MG/DL (<100); NON-HDL-C 86 MG/DL; POTASSIUM SERUM 3.9 MEQ/L (3.5-5.1); SODIUM LEVEL 144 MEQ/L (136-145); TOTAL PROTEIN 7.6 GM/DL (6.4-8.2); TRIGLYCERIDES LEVEL 80 MG/DL (<150)
[2018-04-05 09:55] LABS: ALPHA FETOPROTEIN TUMOR QUANT 4.7 NG/ML (<8.1)
[2018-04-07 00:07] LABS: HBV HBV DNA not detected IU/mL (.)
== END ==
LOC: M SFHCPLAZ 10:23
DX: B18.1 Chronic viral hepatitis B without delta-agent (principal); E78.00 Pure hypercholesterolemia, unspecified

== ENCOUNTER → 2019-03-14 | Outpatient (REF) | payer OTHER ==
[2019-03-14 13:20] LABS: BASO % 0.2 % (0.0-1.0); EOS # 0.1 10^3/uL (0.0-0.5); HEMOGLOBIN 15.2 g/dl (12.0-15.5); LYMPH # 1.7 10^3/uL (1.5-5.0); LYMPH % 37.1 % (24.0-44.0); MEAN CORPUSCULAR HEMOGLOBIN 31.3 pg (27.0-33.0); MEAN CORPUSCULAR HGB CONC 32.3 g/dl (32.0-36.5); MEAN CORPUSCULAR VOLUME 96.9 fl (80.0-96.0); MONO # 0.3 10^3/uL (0.0-0.8); MONO % 5.8 % (0.0-5.0); NEUTROPHILS # 2.4 10^3/uL (1.5-8.5); NEUTROPHILS % 54.7 % (36.0-66.0); PLATELET COUNT, AUTOMATED 204 10^3/uL (150-450); RED BLOOD COUNT 4.85 10^6/uL (4.00-5.40); WHITE BLOOD COUNT 4.5 10^3/uL (4.0-10.0)
[2019-03-14 13:26] LABS: ALBUMIN 4.4 GM/DL (3.2-5.2); ALT/SGPT 23 U/L (12-78); BILIRUBIN,TOTAL 0.7 MG/DL (0.2-1.0); BLOOD UREA NITROGEN 9 MG/DL (7-18); CALCIUM LEVEL 9.6 MG/DL (8.5-10.1); CARBON DIOXIDE LEVEL 28 MEQ/L (21-32); CHLORIDE LEVEL 106 MEQ/L (98-107); CHOLESTEROL LEVEL 146 MG/DL (<200); CHOLESTEROL RISK RATIO 2.147 (<5); CREATININE FOR GFR 0.66 MG/DL (0.55-1.30); GLOMERULAR FILTRATION RATE > 60.0 (>51); GLUCOSE, FASTING 96 MG/DL (70-100); HDL CHOLESTEROL 68 MG/DL (>40); LDL CHOLESTEROL 58 MG/DL (<100); NON-HDL-C 78 MG/DL; POTASSIUM SERUM 3.8 MEQ/L (3.5-5.1); SODIUM LEVEL 142 MEQ/L (136-145); TOTAL PROTEIN 7.8 GM/DL (6.4-8.2); TRIGLYCERIDES LEVEL 99 MG/DL (<150)
[2019-03-14 13:33] LABS: TOTAL 25(OH) VITAMIN D 22.6 NG/ML (30.0-100.0)
[2019-03-14 13:38] LABS: INR 1.1; PROTHROMBIN TIME 13.9 SECONDS (11.8-14.0)
[2019-03-14 13:46] LABS: HEMOGLOBIN A1c 5.9 %
[2019-03-15 07:04] LABS: HEPATITIS B SURFACE ANTIBODY NEGATIVE (POSITIVE)
[2019-03-15 09:22] LABS: HEPATITIS B SURFACE ANTIGEN POSITIVE (NEGATIVE)
[2019-03-16 00:07] LABS: HEPATITIS B CORE ANTIBODY IGG Positive (Negative); HEPATITIS BE ANTIBODY Positive (Negative); HEPATITIS BE ANTIGEN Negative (Negative)
== END ==
LOC: M SFHCPLAZ 10:25
PROVIDERS: ATTEND Internal Medicine Infectious Disease
DX: E78.00 Pure hypercholesterolemia, unspecified (principal); B18.1 Chronic viral hepatitis B without delta-agent

== ENCOUNTER → 2019-03-21 | Outpatient (CLI) | payer OTHER ==
--- NOTE | 2019-03-21 11:09 | REPMRS ---
Patient History The patient states she had a clinical breast exam in 03/2019. No known family history of cancer. 3D TOMOSYNTHESIS WAS PERFORMED. [facility] [address] lifetime risk for breast cancer is 8.3%. Digital Woman Screen Mammo: March 21, 2019 - Exam #: [id number] Bilateral CC and MLO view(s) were taken. Technologist: Tia Littlejohn, Technologist Prior study comparison: March 18, 2018, bilateral digital woman screen mammo performed at [facility]. March 18, 2017, digital woman screen mammo performed at [facility]. FINDINGS: The breast tissue is extremely dense which could obscure a lesion on mammography. There has been no change in the appearance of the mammogram from the prior studies. There is a moderate amount of residual fibroglandular tissue which is fairly symmetric. There is no interval development of dominant mass, areas of architectural distortion, or clustered microcalcification typical of malignancy. Assessment: BI-RADS/ACR category 1 mammogram. Negative Mammogram. Recommendation Routine screening mammogram in 1 year (for women over age 40). This mammogram was interpreted with the aid of an FDA-approved computer-aided dectection system. Electronically Signed By: Dmitry Rubalcava MD 03/21/19 1878
== END ==
LOC: M WHC 08:12
PROVIDERS: ATTEND Nurse Practitioner Family
DX: Z12.31 Encounter for screening mammogram for malignant neoplasm of breast (principal)

== ENCOUNTER → 2021-11-17 | Outpatient (CLI) | payer OTHER ==
[2021-11-17 15:36] LABS: BASO % 0.6 % (0.0-1.0); EOS # 0.2 10^3/uL (0.0-0.5); EOS % 3.6 % (0.0-3.0); HEMATOCRIT 44.8 % (36.0-47.0); HEMOGLOBIN 14.6 g/dl (12.0-15.5); LYMPH # 1.9 10^3/uL (1.5-5.0); LYMPH % 37.3 % (24.0-44.0); MEAN CORPUSCULAR HEMOGLOBIN 31.9 pg (27.0-33.0); MEAN CORPUSCULAR HGB CONC 32.6 g/dl (32.0-36.5); MONO # 0.4 10^3/uL (0.0-0.8); MONO % 6.9 % (2.0-8.0); NEUTROPHILS # 2.6 10^3/uL (1.5-8.5); NEUTROPHILS % 51.4 % (36.0-66.0); PLATELET COUNT, AUTOMATED 221 10^3/uL (150-450); RED BLOOD COUNT 4.57 10^6/uL (4.00-5.40)
[2021-11-17 16:08] LABS: HEMOGLOBIN A1c 5.9 %
[2021-11-17 16:14] LABS: ALBUMIN 4.1 GM/DL (3.2-5.2); ALT/SGPT 23 U/L (12-78); AMYLASE 117 U/L (25-115); BILIRUBIN,TOTAL 0.7 MG/DL (0.2-1.0); BLOOD UREA NITROGEN 11 MG/DL (7-18); CALCIUM LEVEL 9.5 MG/DL (8.8-10.2); CARBON DIOXIDE LEVEL 31 MEQ/L (21-32); CHLORIDE LEVEL 106 MEQ/L (98-107); CHOLESTEROL LEVEL 137 MG/DL (<200); CHOLESTEROL RISK RATIO 1.851 (<5); CREATININE FOR GFR 0.65 MG/DL (0.55-1.30); FREE T4 1.11 NG/DL (0.76-1.46); GLOMERULAR FILTRATION RATE > 60.0 (>45); GLUCOSE, FASTING 96 MG/DL (70-100); HDL CHOLESTEROL 74 MG/DL (>40); LDL CHOLESTEROL 47 MG/DL (<100); LIPASE 191 U/L (73-393); NON-HDL-C 63 MG/DL; POTASSIUM SERUM 4.3 MEQ/L (3.5-5.1); SODIUM LEVEL 141 MEQ/L (136-145); TOTAL 25(OH) VITAMIN D 23.4 NG/ML (30.0-100.0); TOTAL PROTEIN 7.7 GM/DL (6.4-8.2); TRIGLYCERIDES LEVEL 78 MG/DL (<150)
== END ==
LOC: M PLALAB 10:37
PROVIDERS: ATTEND Physician Assistant
DX: K29.50 Unspecified chronic gastritis without bleeding (principal); B18.1 Chronic viral hepatitis B without delta-agent; E78.00 Pure hypercholesterolemia, unspecified; E04.1 Nontoxic single thyroid nodule; E55.9 Vitamin D deficiency, unspecified; Z13.1 Encounter for screening for diabetes mellitus; R74.8 Abnormal levels of other serum enzymes

== ENCOUNTER 2021-11-24 10:18 | Emergency (ER) | payer OTHER ==
[~2021-11-24] VITALS: Ht 154.9 cm; Wt 51.0 kg
[2021-11-24] MEDS ORDERED: CEFD300C41 PO (11:41)
[2021-11-24 11:51] VITALS: BP 149/88
== END 2021-11-24 11:52 | disposition home or self-care (01) ==
LOC: M ED 10:18
DX: H72.2X1 Other marginal perforations of tympanic membrane, right ear (principal); K21.9 Gastro-esophageal reflux disease without esophagitis; E78.5 Hyperlipidemia, unspecified; Z79.899 Other long term (current) drug therapy; Z88.0 Allergy status to penicillin; Z88.6 Allergy status to analgesic agent; Z88.8 Allergy status to other drugs, medicaments and biological substances; Z88.1 Allergy status to other antibiotic agents; Z88.5 Allergy status to narcotic agent

== ENCOUNTER → 2021-12-08 | Outpatient (CLI) | payer OTHER ==
[~2021-12-08] MED LIST changes: +CEFD300C41 PO
[2021-12-08 14:58] LABS: PERCENT SATURATION 24.5 % (13.2-45.0)
== END ==
LOC: M PLALAB 10:42
PROVIDERS: ATTEND Internal Medicine Infectious Disease
DX: B18.1 Chronic viral hepatitis B without delta-agent (principal); K29.50 Unspecified chronic gastritis without bleeding

== ENCOUNTER → 2021-12-16 | Outpatient (CLI) | payer OTHER | LOC: M WHC 07:48 | PROVIDERS: ATTEND Internal Medicine Infectious Disease | DX: B18.1 Chronic viral hepatitis B without delta-agent (principal) ==

== ENCOUNTER → 2021-12-24 | Outpatient (CLI) | payer OTHER | LOC: M WHC 10:46 | PROVIDERS: ATTEND Physician Assistant | DX: Z12.31 Encounter for screening mammogram for malignant neoplasm of breast (principal); E04.1 Nontoxic single thyroid nodule; R92.2 Inconclusive mammogram ==

== ENCOUNTER → 2022-01-08 | Outpatient (CLI) | payer OTHER ==
[~2022-01-08] MED LIST changes: +ERGO500029 PO; +MULT-90 PO; +PANT20TA6 PO
== END ==
LOC: M LABSMTC 10:08
PROVIDERS: ATTEND Anesthesiology
DX: Z01.812 Encounter for preprocedural laboratory examination (principal); Z11.52 Encounter for screening for COVID-19

== ENCOUNTER 2022-01-13 07:36 | Day surgery (SDC) | payer OTHER ==
[~2022-01-13] VITALS: Ht 157.5 cm; Wt 49.0 kg
[~2022-01-13 07:36] MED LIST changes: +NS 1,000 ML IV ONE
[2022-01-13] MEDS ORDERED: propofoL 500 MG/50 ML VIAL As Ordered ONE (08:04)
[2022-01-13] MEDS ORDERED: fentaNYL 100 MCG/2 ML INJECTION As Ordered ONE (08:04)
[2022-01-13] MEDS ORDERED: ONDANSETRON 4MG 2ML VIAL As Ordered ONE (09:49)
[2022-01-13 10:43] VITALS: BP 143/74
== END 2022-01-13 10:46 | disposition home or self-care (01) ==
LOC: M OPP 07:36
PROVIDERS: ATTEND Internal Medicine Gastroenterology
DX: Z12.11 Encounter for screening for malignant neoplasm of colon (principal); Z86.010 Personal history of colon polyps; D12.3 Benign neoplasm of transverse colon; D12.5 Benign neoplasm of sigmoid colon; K57.30 Diverticulosis of large intestine without perforation or abscess without bleeding; K64.8 Other hemorrhoids; R12 Heartburn; B19.10 Unspecified viral hepatitis B without hepatic coma; Z79.02 Long term (current) use of antithrombotics/antiplatelets; Z79.899 Other long term (current) drug therapy; Z88.0 Allergy status to penicillin; Z88.1 Allergy status to other antibiotic agents; Z88.5 Allergy status to narcotic agent; Z88.6 Allergy status to analgesic agent; Z88.8 Allergy status to other drugs, medicaments and biological substances
CPT/HCPCS: 43235; 45385; 88305; J2405; J3010

== ENCOUNTER 2022-01-13 20:21 | Emergency (ER) | payer OTHER ==
[~2022-01-13] VITALS: Ht 132.1 cm; Wt 48.6 kg
[~2022-01-13 20:21] MED LIST changes: -NS 1,000 ML IV ONE
[2022-01-13 21:17] LABS: INR 0.96; PROTHROMBIN TIME 13.2 SECONDS (12.7-14.5)
[2022-01-13 21:31] LABS: ALBUMIN 3.4 GM/DL (3.2-5.2); ALT/SGPT 22 U/L (12-78); BILIRUBIN,TOTAL 0.3 MG/DL (0.2-1.0); BLOOD UREA NITROGEN 18 MG/DL (7-18); CALCIUM LEVEL 9.1 MG/DL (8.8-10.2); CARBON DIOXIDE LEVEL 25 MEQ/L (21-32); CHLORIDE LEVEL 109 MEQ/L (98-107); CREATININE FOR GFR 0.68 MG/DL (0.55-1.30); GLOMERULAR FILTRATION RATE > 60.0 (>45); GLUCOSE, FASTING 118 MG/DL (70-100); POTASSIUM SERUM 3.9 MEQ/L (3.5-5.1); SODIUM LEVEL 140 MEQ/L (136-145)
[2022-01-13 22:51] LABS: HEMOGLOBIN 13.6 g/dl (12.0-15.5)
[2022-01-14 02:15] VITALS: BP 160/90
== END 2022-01-14 06:03 | disposition left against medical advice (07) ==
LOC: M ED 20:21
DX: Z53.21 Procedure and treatment not carried out due to patient leaving prior to being seen by health care provider (principal)

== ENCOUNTER → 2022-01-19 | Outpatient (CLI) | payer OTHER | LOC: M WHC 14:24 | PROVIDERS: ATTEND Physician Assistant | DX: N85.8 Other specified noninflammatory disorders of uterus (principal) ==

== ENCOUNTER → 2022-04-22 | Outpatient (CLI) | payer OTHER ==
[~2022-04-22] MED LIST changes: +SIMV-253 PO; -ZOCO20TA PO
[2022-04-22 15:07] LABS: BASO % 0.4 % (0.0-1.0); EOS # 0.1 10^3/uL (0.0-0.5); EOS % 1.7 % (0.0-3.0); HEMOGLOBIN 14.6 g/dl (12.0-15.5); LYMPH # 1.7 10^3/uL (1.5-5.0); LYMPH % 32.3 % (24.0-44.0); MEAN CORPUSCULAR HEMOGLOBIN 31.3 pg (27.0-33.0); MEAN CORPUSCULAR HGB CONC 32.4 g/dl (32.0-36.5); MEAN CORPUSCULAR VOLUME 96.6 fl (80.0-96.0); MONO # 0.3 10^3/uL (0.0-0.8); MONO % 5.6 % (2.0-8.0); NEUTROPHILS # 3.2 10^3/uL (1.5-8.5); NEUTROPHILS % 59.8 % (36.0-66.0); PLATELET COUNT, AUTOMATED 178 10^3/uL (150-450); RED BLOOD COUNT 4.66 10^6/uL (4.00-5.40); WHITE BLOOD COUNT 5.3 10^3/uL (4.0-10.0)
[2022-04-22 15:36] LABS: HEMOGLOBIN A1c 6.1 %
[2022-04-22 16:29] LABS: ALT/SGPT 23 U/L (12-78); AMYLASE 261 U/L (25-115); BILIRUBIN,TOTAL 0.7 MG/DL (0.2-1.0); BLOOD UREA NITROGEN 14 MG/DL (7-18); CALCIUM LEVEL 9.5 MG/DL (8.8-10.2); CARBON DIOXIDE LEVEL 29 MEQ/L (21-32); CHLORIDE LEVEL 108 MEQ/L (98-107); CHOLESTEROL LEVEL 142 MG/DL (<200); CHOLESTEROL RISK RATIO 1.797 (<5); CREATININE FOR GFR 0.65 MG/DL (0.55-1.30); FREE T4 1.09 NG/DL (0.76-1.46); GLOMERULAR FILTRATION RATE > 60.0 (>45); GLUCOSE, FASTING 96 MG/DL (70-100); HDL CHOLESTEROL 79 MG/DL (>40); LDL CHOLESTEROL 48 MG/DL (<100); LIPASE 410 U/L (73-393); NON-HDL-C 63 MG/DL; POTASSIUM SERUM 4.6 MEQ/L (3.5-5.1); SODIUM LEVEL 142 MEQ/L (136-145); TOTAL PROTEIN 7.4 GM/DL (6.4-8.2); TRIGLYCERIDES LEVEL 74 MG/DL (<150)
[2022-04-22 16:41] LABS: HEPATITIS B SURFACE ANTIBODY NEGATIVE (POSITIVE); TOTAL 25(OH) VITAMIN D 71.8 NG/ML (30.0-100.0)
[2022-04-22 17:21] LABS: HEPATITIS B CORE ANTIBODY IGM NEGATIVE (NEGATIVE)
[2022-04-22 17:27] LABS: HEPATITIS B SURFACE ANTIGEN POSITIVE (NEGATIVE)
== END ==
LOC: M PLALAB 10:38
PROVIDERS: ATTEND Physician Assistant
DX: E78.00 Pure hypercholesterolemia, unspecified (principal); B18.1 Chronic viral hepatitis B without delta-agent

== ENCOUNTER → 2022-05-06 | Outpatient (CLI) | payer OTHER ==
[~2022-05-06] MED LIST changes: +GASTROGRAFIN SOLUTION 30ML (Q9963) As Ordered ONE; +ISOVUE-370 76% 100ML VIAL As Ordered ONE
== END ==
LOC: M RAD 09:39
PROVIDERS: ATTEND Physician Assistant
DX: R74.8 Abnormal levels of other serum enzymes (principal); N28.1 Cyst of kidney, acquired; M48.56XA Collapsed vertebra, not elsewhere classified, lumbar region, initial encounter for fracture
CPT/HCPCS: 74177; Q9963; Q9967

== ENCOUNTER → 2022-05-08 | Outpatient (CLI) | payer OTHER ==
[~2022-05-08] MED LIST changes: -GASTROGRAFIN SOLUTION 30ML (Q9963) As Ordered ONE; -ISOVUE-370 76% 100ML VIAL As Ordered ONE
[2022-05-08 11:05] LABS: ALBUMIN 3.7 GM/DL (3.2-5.2); BILIRUBIN,DIRECT 0.1 MG/DL (0.0-0.2); BILIRUBIN,TOTAL 0.4 MG/DL (0.2-1.0); TOTAL PROTEIN 7.6 GM/DL (6.4-8.2)
[2022-05-10 13:11] LABS: HBV HBV DNA not detected IU/mL (.)
== END ==
LOC: M PLALAB 08:33
PROVIDERS: ATTEND Physician Assistant
DX: R74.8 Abnormal levels of other serum enzymes (principal)

== ENCOUNTER → 2024-01-28 | Outpatient (CLI) | payer OTHER, SELFPAY ==
[~2024-01-28] MED LIST changes: +CEFD1CAP9 PO; -CEFD300C41 PO
== END ==
LOC: M WHC 10:38
PROVIDERS: ATTEND Nurse Practitioner Family
DX: Z12.31 Encounter for screening mammogram for malignant neoplasm of breast (principal); R92.333 Mammographic heterogeneous density, bilateral breasts

== ENCOUNTER → 2024-01-28 | Outpatient (REF) | payer OTHER ==
[2024-02-01 13:01] LABS: HPV APTIMA Not Detected (Not Detected)
== END ==
LOC: M SFHCWAGY 13:02
PROVIDERS: ATTEND Nurse Practitioner Family
DX: Z12.4 Encounter for screening for malignant neoplasm of cervix (principal); N95.2 Postmenopausal atrophic vaginitis

== ENCOUNTER → 2024-02-01 | Outpatient (CLI) | payer OTHER, SELFPAY ==
[2024-02-01 13:34] LABS: BASO % 0.4 % (0.0-1.0); EOS # 0.1 10^3/uL (0.0-0.5); EOS % 1.9 % (0.0-3.0); HEMATOCRIT 44.1 % (36.0-47.0); HEMOGLOBIN 14.6 g/dl (12.0-15.5); LYMPH # 1.8 10^3/uL (1.5-5.0); LYMPH % 32.3 % (24.0-44.0); MEAN CORPUSCULAR HEMOGLOBIN 32.1 pg (27.0-33.0); MEAN CORPUSCULAR HGB CONC 33.1 g/dl (32.0-36.5); MEAN CORPUSCULAR VOLUME 96.9 fl (80.0-96.0); MONO # 0.3 10^3/uL (0.0-0.8); MONO % 4.6 % (2.0-8.0); NEUTROPHILS # 3.4 10^3/uL (1.5-8.5); NEUTROPHILS % 60.6 % (36.0-66.0); PLATELET COUNT, AUTOMATED 120 10^3/uL (150-450); RED BLOOD COUNT 4.55 10^6/uL (4.00-5.40); WHITE BLOOD COUNT 5.7 10^3/uL (4.0-10.0)
[2024-02-01 13:54] LABS: HEMOGLOBIN A1c 5.8 % (4.0-6.0)
[2024-02-01 14:00] LABS: ALBUMIN 4.1 G/DL (3.2-5.2); ALKALINE PHOSPHATASE 69 U/L (46-116); ALT/SGPT 22 U/L (7.0-40); AST/SGOT 47 U/L (<34); BILIRUBIN,TOTAL 0.8 MG/DL (0.3-1.2); BLOOD UREA NITROGEN 16 MG/DL (9-23); CALCIUM LEVEL 9.5 MG/DL (8.3-10.6); CARBON DIOXIDE LEVEL 29 MMOL/L (20-31); CHLORIDE LEVEL 106 MMOL/L (98-107); CHOLESTEROL LEVEL 159 MG/DL (<200); CHOLESTEROL RISK RATIO 2.34 (<5); CREATININE FOR GFR 0.56 MG/DL (0.55-1.30); GLOMERULAR FILTRATION RATE > 60.0 (>45); GLUCOSE, FASTING 97 MG/DL (74-106); HDL CHOLESTEROL 67.7 MG/DL (>40); LDL CHOLESTEROL 75.3 MG/DL (<100); NON-HDL-C 91.3 MG/DL; POTASSIUM SERUM 4.8 MMOL/L (3.5-5.1); SODIUM LEVEL 142 MMOL/L (136-145); THYROID STIMULATING HORMONE 1.445 uIU/ML (0.55-4.78); TOTAL PROTEIN 7.3 G/DL (5.7-8.2); TRIGLYCERIDES LEVEL 80 MG/DL (<150)
[2024-02-01 14:01] LABS: TOTAL 25(OH) VITAMIN D 38.7 NG/ML (20.0-100.0)
[2024-02-02 19:12] LABS: HBV IU/mL NOT DETECTED (NOT DETECTED); log 10 HBV IU/mL NOT DETECTED Log IU/mL (NOT DETECTED)
== END ==
LOC: M PLALAB 10:33
PROVIDERS: ATTEND Internal Medicine Infectious Disease
DX: B18.1 Chronic viral hepatitis B without delta-agent (principal); R73.03 Prediabetes; E55.9 Vitamin D deficiency, unspecified; E78.00 Pure hypercholesterolemia, unspecified; E04.1 Nontoxic single thyroid nodule